=== PATIENT | male | born 1980 | race Caucasian/White ===

== ENCOUNTER 2025-05-13 23:00 | Emergency (ER) | payer SELFPAY ==
[2025-05-13 23:08] VITALS: BP 135/88
--- NOTE | 2025-05-13 23:36 | ED.GENMED ---
History of Present Illness
General
Chief Complaint: Change Level of Consciousness
Time Seen by Provider: 05/13/25 23:10
History of Present Illness
History of Present Illness:
Middle-age male, unknown past medical history, presenting by medics after being found down outside of a bar. Patient limited historian, malodor of EtOH. Patient does admit to drinking upon arrival, denies any drug abuse. No additional history
obtained given patient's suspected intoxication.
Phy Exam
Physical Exam
Physical Exam:
General: Well-appearing, no clinical signs of dehydration, nontoxic and in no acute distress
HEENT: protecting airway
Head: atraumatic
Neck: appears supple
CV: Normal heart rate, regular rhythm
Resp: No accessory muscle use, no increased work of breathing, lungs clear to auscultation bilaterally
Abd: no distension
Extremities: No deformities, no swelling
Neuro: alert, no focal neurologic deficit
: deferred
Rectal: deferred
Psych: Normal affect
Skin: Intact
Course
Orders/Labs/Results
Orders:
Orders
05/13/25 23:36
Lorazepam [Ativan] 2 mg IM NOW STA
05/13/25 23:38
Urine Drug Abuse Screen Urgent
05/13/25 23:39
Urine Fentanyl [Fentanyl, Urine] Urgent
05/13/25 23:45
Acetaminophen Urgent
Alcohol Urgent
Complete Blood Count/With Diff Urgent
Comprehensive Metabolic Panel Urgent
Salicylate Urgent
05/14/25 00:01
CT Cervical Spine W/o Iv Contr Urgent
Reason For Exam: found on ground, ETOH
CT Head W/o Iv Contrast Urgent
Reason For Exam: sound on the ground, ETOH
05/14/25 00:22
0.9% Sodium Chloride 1000 ml [Nss] 1,000 ml IV BOLUS
Abnormal Lab Results
05/13/25
23:45
Absolute Monos (auto) 0.7 H 10^3/uL
(0.1-0.6)
Chloride 108 H mmol/L
(98-107)
Salicylates < 1.0 L mg/dl
(2.0-20.0)
Acetaminophen < 10 L ug/ml
(10-30)
05/13/25 23:45
05/13/25 23:45
Vital Signs
Initial and Last Documented VS:
Initial Vital Signs
Temp Pulse Resp BP Pulse Ox
98.0 F 101 16 135/88 96
05/13/25 23:08 05/13/25 23:08 05/13/25 23:08 05/13/25 23:08 05/13/25 23:08
Last Documented Vital Signs
Temp Pulse Resp BP Pulse Ox
98.0 F 74 22 123/78 95
05/13/25 23:08 05/14/25 03:45 05/14/25 03:45 05/14/25 03:40 05/14/25 03:45
MDM/Problems Addressed
MDM/Problems Addressed:
Unknown aged male presenting after being found down outside of a bar prior to arrival. Vital signs are significant for mild tachycardia.
On exam, patient is in no acute distress, patient appears intoxicated, smells of alcohol, admits alcohol usage. Suspected acute alcohol intoxication. Unclear if patient fell, very limited historian. Plan for CT brain and C-spine imaging. No
physical signs of trauma at this time. Will also screen with laboratory analysis and continue to closely monitor until clinically sober for ambulation and disposition home
04:00 -patient resting comfortably. CTs are negative. Alcohol level is elevated, consistent with exam. Plan for continued observation until clinically sober for discharge
*Pulse Oximetry
SaO2: 96
Oxygen Mode of Delivery: Room air
Patient hypoxic: no
*Critical Care Note
Total Time (30-74mins, 75-104mins- exclusive of procedures): Not Applicable
ED Attending Note
-
Portions of this chart may have been created with voice recognition software.� Occasional wrong word or��sound alike� substitutions may have occurred due to the inherent limitations of voice recognition software.
Discharge Plan
Departure
Patient with high blood pressure during this ER visit?: No
Condition: Good
Discharge Problem:
Alcohol intoxication
Instructions: Alcohol intoxication - ED discharge instructions
Prescriptions:
No Action
Unobtainable
0
Referrals:
UNKNOWN - PT DOES,NOT KNOW [Family Provider]
Activity Restrictions/Additional Instructions:
You were seen in the emergency department for concern of alcohol intoxication
You were found to have an elevated alcohol level in your bloodstream. You had normal imaging of your brain and your cervical spine. You also had unremarkable laboratory analysis and reassuring vital signs.
Please follow-up closely with your primary care physician. Please abstain from using alcohol in the future.
Return to the emergency department for any worsening of your symptoms, or any development of chest pain, difficulty breathing, abdominal pain with persistent vomiting and inability to tolerate food or liquid by mouth (concern for dehydration),
weakness, headache or confusion, fever greater than 100.4, or any additional symptoms that are concerning to you.
Thank you for choosing [facility].
Interventions
Interventions:
*Risk Screen - Suicide Last Done: 05/13/25 23:02
*General Assessment Last Done: 05/13/25 23:13
*Neglect/Abuse Screening Last Done: 05/13/25 23:13
*ED- Fall Risk Assessment Last Done: 05/13/25 23:13
ED- Cardiac Assessment Last Done: 05/13/25 23:13
ED- Neurological Assessment Last Done: 05/13/25 23:13
ED-Psychological Assessment Last Done: 05/13/25 23:13
ED- Pulmonary Assessment Last Done: 05/13/25 23:13
Discharge Date and Time
Print Language: DANISH
[2025-05-13 23:41] VITALS: BP 119/66
[2025-05-13] MEDS: ATIVAN 2 MG IM (23:48)
[2025-05-13 23:57] LABS: Hematocrit 50.8 % (39.0-52.0); Hemoglobin 17.3 g/dL (13.0-18.0); Mean Corp Hgb Conc. 34.1 g/dL (33.0-37.0); Mean Corpuscular Volume 89.6 fL (80.0-94.0); Nucleated Red Blood Cells % 0 % (-); Platelet Count 266 10^3/uL (130-400); Red Cell Dist. Width 14.1 % (11.5-14.5)
[2025-05-14] VITALS (28 sets, daily range): BP systolic 82–142; BP diastolic 41–87
[2025-05-14 00:10] LABS: ALT (SGPT) 23 U/L (0-50); AST (SGOT) 26 U/L (17-59); Acetaminophen < 10 ug/ml (10-30); Albumin 5.0 g/dl (3.5-5.0); Alkaline Phosphatase 70 U/L (38-126); Blood Urea Nitrogen 11 mg/dl (9-20); Calcium 9.5 mg/dl (8.4-10.2); Carbon Dioxide 23 mmol/L (22-30); Chloride 108 mmol/L (98-107); Glucose 83 mg/dl (70-99); Potassium 3.9 mmol/L (3.5-5.1); Salicylate < 1.0 mg/dl (2.0-20.0); Sodium 144 mmol/L (135-145); Total Protein 8.0 g/dl (6.3-8.2); eGFR > 60.00
[2025-05-14] MEDS: NSS 1000 IV (00:25)
[2025-05-14] MEDS: DUONEB 3 ML INH (06:14)
== END 2025-05-14 09:32 | disposition home or self-care (01) ==
LOC: EMR 23:00
PROVIDERS: EMERGENCY PHYSICIAN Student in an Organized Health Care Education/Training Program
DX: F10.129 Alcohol abuse with intoxication, unspecified (principal); Y90.9 Presence of alcohol in blood, level not specified; R00.0 Tachycardia, unspecified
CPT/HCPCS: 96372; 94640; 96360; 99284; 70450; 72125; 80053; 80143; 80179; 82077; 85025